=== PATIENT | female | born 1990 | race Two or more races ===

== ENCOUNTER 2020-10-27 14:57 | Day surgery (SDC) | payer BC ==
[~2020-10-27] VITALS: Ht 167.6 cm; Wt 88.5 kg
[2020-10-27] MEDS ORDERED: CHLORHEXIDINE 15 ML UDC MM STA (15:35)
[2020-10-27] MEDS ORDERED: MIDAZOLAM 1 MG/ML, 2ML ONE (15:48)
[2020-10-27] MEDS ORDERED: FENTANYL PF 100 MCG/2ML ONE (15:48)
[2020-10-27 15:54] LABS: BASOPHILS % (AUTO) 1 % (0-1); EOSINOPHILS % (AUTO) 7 % (1-7); LYMPHOCYTES % (AUTO) 30 % (22-44); MEAN CORPUSCULAR HEMOGLOBIN 31.4 pg (27.0-34.8); MEAN CORPUSCULAR HGB CONC 34.3 g/dL (32.4-35.8); MEAN PLATELET VOLUME 6.9 fL (7.4-10.4); MONOCYTES % (AUTO) 8 % (2-9); NEUTROPHILS % (AUTO) 55 % (42-75); PLATELET COUNT 278 x10^3/uL (130-400); RED BLOOD COUNT 4.48 x10^6/uL (3.82-5.3); RED CELL DISTRIBUTION WIDTH 12.3 % (9.6-15.2)
[2020-10-27] MEDS ORDERED: MISOPROSTOL 200 MCG TABLET ONE (15:55)
[2020-10-27 15:56] VITALS: BP 102/66
[2020-10-27] MEDS ORDERED: METHYLERGONOVINE 0.2 MG/ML IM ONE (15:56)
[2020-10-27] MEDS ORDERED: VASOPRESSIN 20 UNIT/ML, 1ML ONE (15:56)
[2020-10-27] MEDS ORDERED: SILVER NITRATE STICK TP ONE (15:56)
[2020-10-27] MEDS ORDERED: OXYTOCIN 10 UNITS/ML, 1ML ONE (15:56)
[2020-10-27] MEDS ORDERED: SODIUM CHLORIDE 0.9% 0 ML ONE (15:56)
[2020-10-27 15:57] LABS: MD NO
[2020-10-27] MEDS ORDERED: KETOROLAC 30 MG/1 ML IVPush PRN (16:00)
[2020-10-27] MEDS ORDERED: HYDROcodone/APAP 7.5-325MG/15ML UDC PO PRN (16:00)
[2020-10-27] MEDS ORDERED: OXYcodone 5 MG/5 ML ORAL.SOL UDC PO PRN (16:00)
[2020-10-27] MEDS ORDERED: FENTANYL PF 100 MCG/2ML IV PRN (16:00)
[2020-10-27] MEDS ORDERED: MEPERIDINE/PF 25MG/0.5ML IVPush PRN (16:00)
[2020-10-27] MEDS ORDERED: LACTATED RINGERS 1,000 ML IV SCH (16:00)
[2020-10-27] MEDS ORDERED: PROMETHAZINE 25 MG/ML, 1ML IVPush PRN (16:00)
[2020-10-27] MEDS ORDERED: HYDROmorphone 1 MG/ML, 1ML INJ IVPush PRN (16:00)
[2020-10-27] MEDS ORDERED: PLEASE ENTER ALLERGIES MC SCH (16:00)
[2020-10-27 16:05] LABS: ANION GAP 4 mmol/L (5-15); CALCIUM 8.9 mg/dL (8.5-10.1); CHLORIDE 108 mmol/L (98-107); CREATININE 0.73 mg/dL (0.55-1.02)
[2020-10-27] MEDS ORDERED: DEXAMETHASONE 4 MG/ML, 5ML ONE (16:39)
[2020-10-27] MEDS ORDERED: ONDANSETRON 2MG/ML, 2ML ONE (16:39)
[2020-10-27] MEDS ORDERED: LIDOCAINE-MPF 2% ,5ML ONE (16:39)
[2020-10-27] MEDS ORDERED: PROPOFOL 10 MG/ML, 20ML ONE (16:39)
== END 2020-10-27 18:30 | disposition home or self-care (01) ==
LOC: OR 14:57
PROVIDERS: ATTEND Obstetrics & Gynecology Maternal & Fetal Medicine
DX: O02.1 Missed abortion (principal); Z88.3 Allergy status to other anti-infective agents; Z91.038 Other insect allergy status; Z91.048 Other nonmedicinal substance allergy status; Z20.828 Contact with and (suspected) exposure to other viral communicable diseases; Z98.890 Other specified postprocedural states
CPT/HCPCS: 36415; 59820; 80048; 85025; 86850; 86900; 88305; J1885; J2250; J3010; J7120; U0003; J1100; J2405; J2704; J2210; J2590